=== PATIENT | female | born 1990 | race Hispanic/Latino ===

== ENCOUNTER 2017-02-05 23:39 | Emergency (ER) | payer SELFPAY ==
[~2017-02-05] VITALS: Ht 157.5 cm; Wt 127.0 kg
[~2017-02-05 23:39] MED LIST: AGM875T PO; METF500T PO; OXYC5TAB72 PO
[2017-02-05 23:43] VITALS: BP 150/96; PULSE 89; RESP 16; O2SAT 97
--- NOTE | 2017-02-06 00:08 | ED.REPORT ---
HPI-Abd Pain F Under 40 Date of Service February 06, 2017 ED Provider: Dr. Byers Pt is a 26 y/o morbidly obese female w/ a hx of NIDDM presenting to the ED c/o intermittent left flank pain with radiation to the LLQ and back onset 1 month ago. She c/o associated dysuria, nausea and vomiting in the mornings. Pt denies fever, chills, diarrhea, . Nursing Notes Stated Complaint: STOMACH PAIN LEFT SIDE Chief Complaint: Female Abdominal Pain Nursing Notes Reviewed: Yes Allergies: Coded Allergies: No Known Allergies (Unverified , 10/08/15) Scheduled Amoxicillin/Clav K 875-125 mg (Amoxicillin/Clav K 875-125 mg) 1 Tab Tablet 1 TAB PO BID Metformin (Glucophage) 500 Mg Tablet 500 MG PO BIDWM Scheduled PRN oxyCODONE (oxyCODONE) 5 Mg Tablet 5 MG PO Q4H PRN PRN For Moderate Pain General Time Seen by MD: 00:07 Chief Complaint Abdominal pain Hx Obtained From: Patient Arrived By: Walk-in Sudden in Onset?: No Onset Occurred: More than a week ago... (1 month) Symptom Duration: Intermittent Location: : Flank left: LLQ Quality: Painful Radiation: : Back: LLQ Severity: Current: Mild Severity: Maximum: Moderate Similar Sx Previous: No Past Medical History Past Medical History heartburn Past Surgical History Right kidney - unspecified Smoking History Never Smoker Social History Alcohol Use: Denies alcohol use Drug Use: Denies drug use Other Social History: Lives with parents Occupation no school or work Review of Systems Constitutional: Denies: Chills, Fever Respiratory: Denies: Non-productive cough, Shortness of breath Cardiovascular: Denies: Chest pain, Dyspnea on exertion GI: Reports: Abdominal pain, Nausea, Vomiting, Denies: Diarrhea Female: Reports: Dysuria, Flank pain, Denies: Complete sys rev & neg: except as marked. Physical Exam Initial Vital Signs Vital Signs (First) Date Time Temp Pulse Resp B/P Pulse Ox O2 Delivery O2 Flow Rate FiO2 02/05/17 23:43 36.6 89 16 150/96 97 Room Air Initial VS: Reviewed, Vital signs normal Head / Eyes: Atraumatic, Normocephalic, PERRL ENT: Mucous membranes moist, Conjunctiva normal, No scleral icterus Neck: Supple, Full range of motion Extremities: Vascular intact, Neuro intact, No swelling, No tenderness Skin: Warm, Dry, No cyanosis Neurologic: Alert, Oriented, Nonfocal Psychiatric: Mood/affect normal, Behavior normal, Normal thought content General/Constitutional: Awake, Alert, No acute distress, Well appearing, Cooperative, Not toxic appearing Appearance / Presentation: Positive: Obese, morbidly Respiratory / Chest: Breath sounds NL, Breath sounds = bilat, No respiratory distress, No rales, No rhonchi, No wheezing Cardiovascular: Heart rate NL, Regular rhythm, Heart sounds NL, No gallop, No murmurs, No rubs, Cap refill not delayed, Peripheral circulation NL Abdomen: Atraumatic, Soft, No guarding, No rebound, No distention, No palpable mass Tenderness/Guarding/Rebound: Positive: Tender LLQ... (Mild), Tender flank L Back: Full range of motion, Painless range of motion Interpretation & Diagnostics Lab Results Interpretation Result Diagram: 02/06/17 0041 02/06/17 0041 Test 02/05/17 23:50 02/06/17 00:00 02/06/17 00:41 Hold Urine Received (Received) Urine Color Straw (YELLOW) Urine Appearance Clear (CLEAR,HAZY) Urine pH 7.0 (5.0-8.0) Urine Specific [place] 1.010 (1.003-1.035) Urine Protein Negativemg/dL (NEG,TRACE) Urine Glucose (UA) >1000mg/dL (NEGATIVE) Urine Ketones Negativemg/dL (NEGATIVE) Urine Occult Blood Negative (NEGATIVE) Urine Nitrite Negative (NEGATIVE) Urine Bilirubin Negative (NEGATIVE) Urine Urobilinogen Normalmg/dL (NORMAL) Urine Leukocyte Esterase Negative (NEGATIVE) Urine RBC 0-2/hpf (0-2) Urine WBC 0-5/hpf (0-5) Urine Epithelial Cells Moderate/hpf (NONE-MOD) Urine Crystals None seen (NONE SEEN) Urine Bacteria Few/hpf (NONE-FEW) Urine Hyaline Casts None/lpf (NONE) Urine Granular Casts None seen (NONE SEEN) Urine Waxy Casts None seen (NONE SEEN) Urine Red Blood Cell Casts None seen (NONE SEEN) Urine White Blood Cell Casts None seen (NONE SEEN) Urine Mucus None seen (None Seen) Urine Trichomonas None seen (NONE SEEN) Urine Yeast Few (NONE SEEN) Urinalysis Comment None Urine Culture Reflexed Not indicated White Blood Count 8.5th/mm3 (3.8-10.1) Red Blood Count 5.10mil/mm3 (3.90-5.20) Hemoglobin 14.0g/dL (12.0-15.6) Hematocrit 40.6% (35.0-46.0) Mean Corpuscular Volume 79.6fL (81-100) Mean Corpuscular Hemoglobin 27.5pg (27.0-35.0) Mean Corpuscular Hemoglobin Concent 34.5% (32.0-37.0) Red Cell Distribution Width 13.4% (12.3-15.4) Platelet Count 234bil/L (150-400) Neutrophils (%) (Auto) 60.6% (40-74) Lymphocytes (%) (Auto) 30.5% (14-46) Monocytes (%) (Auto) 7.9% (4-12) Eosinophils (%) (Auto) 0.7% (0-5) Basophils (%) (Auto) 0.1% (0-3) Sodium Level 136mEq/L (134-144) Potassium Level 3.9mEq/L (3.5-5.2) Chloride Level 98mEq/L (97-108) Carbon Dioxide Level 21mmol/L (18-29) Blood Urea Nitrogen 11mg/dL (6-20) Creatinine 0.31mg/dL (0.57-1.00) Estimat Glomerular Filtration Rate 371mL/min (>59) Glucose Level 406mg/dL (60-99) Calcium Level 8.9mg/dL (8.5-10.1) Total Bilirubin 0.7mg/dL (0.0-1.2) Aspartate Amino Transf (AST/SGOT) 39U/L (0-50) Alanine Aminotransferase (ALT/SGPT) 80U/L (0-32) Alkaline Phosphatase 102U/L (25-150) Total Protein 7.1g/dL (6.4-8.4) Albumin 3.7g/dL (3.4-5.0) Human Chorionic Gonadotropin, Qual <0.500 (Negative) CT Abd / Pelvis Interpretation Conclusion: No hydronephrosis or nephrolithiasis Minimal diverticulosis with no evidence of diverticulitis Status post cholecystectomy Transmitted to the ED by Samir Crenshaw MD at 0117 Study type: Abdominal CT no contrast Interpretation / Wet Read by: Interpret - Radiologist Re-Eval/Medical Decision Med Decision/Clinical Course CT scan was reassuring. Laboratory work shows hyperglycemia without anion gap or diabetic ketoacidosis. Urinalysis shows negative test as well as negative indicators for infection. Because her pain is uncertain. No life- threatening illness identified and history, physical or diagnostics. As such she will be discharged home with close outpatient follow-up. Short course of Naprosyn and Lottie prescribed for pain. Routine narcotic and abdominal pain warnings were given. Acute appendicitis, cholecystitis and ovary and torsion are highly unlikely based on history physical diagnostics. Re-Evaluation/Progress : Time of Eval: 02:32 Re-Evaluation/Progress Note: Pt rechecked. Informed pt of plan for treatment. Pt understands and agrees with plan for treatment. F/U instructions and RTER warnings given. All questions addressed. Counseled Regarding: Diagnosis, Lab results, Need for follow-up, When/why to return to ED Discharge & Departure Primary Impression: Abdominal pain Abdominal location: left lower quadrant Qualified Code: R10.32 - Left lower quadrant pain Additional Impressions: Hyperglycemia Left flank pain Disposition: Home Discharge Condition All VS Reviewed: Yes Condition: Stable Patient Instructions: Acute Abdominal Pain (ED), Type 2 Diabetes in Adults (ED) Additional Instructions: The cause of your pain is uncertain but not seem life threatening. CT scan and laboratory work was reassuring. Take Naprosyn twice daily for moderate pain. Take 1 Lottie every 6 hours as needed for severe pain. Do not drink alcohol, consume acetaminophen, or drive while taking Lottie. Follow up with the referral clinic next week. Call to schedule an appointment. Your blood sugar was 404 today, you need to discuss more aggressive diabetes management with the referral physician. Return to the emergency department for any new or worsening symptoms. Referrals: [facility] Scribe Attestation Portions of this note were transcribed by Kishor Lal. I, Dr. Byers personally performed the history, physical exam and medical decision-making; I reviewed and confirmed the accuracy of the information in the transcribed note. Signed by Vaibhav Graves, 02/06/ - 0009 Sae Byers DO February 06, 2017 00:07 KISHOR LAL February 06, 2017 00:09
[2017-02-06] MEDS ORDERED: HYDROcodone-APAP 5-325 mg Tablet PO ONE (00:30)
[2017-02-06 00:46] LABS: BASOPHILS % (AUTO) 0.1 % (0-3); EOSINOPHILS % (AUTO) 0.7 % (0-5); MONOCYTES % (AUTO) 7.9 % (4-12); Mean Corpuscular Hemoglobin 27.5 pg (27.0-35.0); Mean Corpuscular Volume 79.6 fL (81-100); NEUTROPHILS % (AUTO) 60.6 % (40-74); Platelet Count 234 bil/L (150-400)
[2017-02-06 02:38] LABS: APPEARANCE,URINE CLEAR (CLEAR,HAZY); COLOR,URINE STRAW (YELLOW); OCCULT BLOOD,URINE NEGATIVE (NEGATIVE); UROBILINOGEN,URINE NORMAL (NORMAL); YEAST,URINE FEW (NONE SEEN)
[2017-02-06 02:57] VITALS: BP 148/92; PULSE 82; RESP 17; O2SAT 98
--- NOTE | 2017-02-06 08:31 | DRSVH ---
PROCEDURE: CT KUB ([id number]) INDICATIONS: left llq and flank pain TECHNIQUE: Noncontrast 5 mm thick sections acquired from the diaphragms to the symphysis. 5 mm thick coronal an d sagittal reformats were then performed. For radiation dose reduction, the following was used: aut omated exposure control, adjustment of mA and/or kV according to patient size. COMPARISON: None. FINDINGS: Image quality: Excellent. Lung bases: Lung bases are clear. Heart size is normal. Urinary system: Both kidneys are normal in size. No kidney stones. No hydronephrosis or perinephri c fat stranding. Both ureters appear non-dilated throughout their expected courses. Bladder wall th ickness is normal; no calcified bladder stones. Other solid organs: Liver and spleen are normal in size. Gallbladder surgically absent. Pancreas i s normal in contours. No adrenal nodules. Peritoneum and bowel: Unenhanced bowel loops demonstrate normal wall thickness and caliber. No free fluid or air. Normal appendix. A few scattered non-complicated by colonic diverticula. Nodes and vessels: No retroperitoneal or mesenteric adenopathy by size criteria. Aorta and inferior vena cava are normal in caliber. Abdominal wall: No ventral hernias. Pelvis: No free pelvic fluid. No inguinal hernias or adenopathy. Bones: No suspicious bony lesions. No vertebral body compression fractures. IMPRESSION: No evidence of urolithiasis or urinary obstruction. Incidentally noted mild diverticulosis. Normal appendix. Dictated by: Magdi Lam M.D. on 02/06/2017 at 8:27 Approved by: Magdi Lam M.D. on 02/06/2017 at 8:29
== END 2017-02-06 02:58 | disposition home or self-care (01) ==
LOC: SED 23:39
DX: R10.32 Left lower quadrant pain (principal); E11.65 Type 2 diabetes mellitus with hyperglycemia; R30.0 Dysuria; R11.2 Nausea with vomiting, unspecified; Z79.84 Long term (current) use of oral hypoglycemic drugs
CPT/HCPCS: 36415; 74176; 80053; 81000; 81025; 84703; 85025; 87491; 87591; 96372; 99285; J1885